=== PATIENT | female | born 1960 | race Two or more races ===

== ENCOUNTER 2025-01-06 07:38 | Inpatient (IN) | payer OTHER ==
[~2025-01-06] VITALS: Ht 149.9 cm; Wt 74.3 kg
--- NOTE | 2025-01-06 08:23 | ED.PDOC ---
GI ASSESSMENT HPI Comments This is a 64 year old female presenting to the ED with chief complaint of abdominal pain. Patient reports that she has been experience suprapubic abdominal pain with associated nausea for the past 3 days. Patient relays that she has a previously diagnosed hernia that she believes is causing her pain. Patient denies any vomiting, diarrhea, fever, chills, dysuria, flank pain, or melena. Chief Complaint: Abdominal Pain Time Seen by MD: 08:18 Reviewed Notes: Nurses Notes, Medications, Allergies Allergies: Coded Allergies: NO KNOWN ALLERGIES (Unverified , 01/06/25) Information Source: Patient Mode of Arrival: Ambulatory Timing: Days Duration: Since onset Prehospital treatment: None Quality: Aching Vomitus: None Stool: Normal Severity: Moderate Recent: None Recent Hx of: None Pain Location: Suprapubic Modifying Factors: Nothing Associated sign and symptoms: Nausea, Abdominal Pain Past Medical History PAST MEDICAL HISTORY: HTN Past Medical History (Other): Hernia Surgical History: Cholecystectomy, HOUSE VISITOR History: Denies all HOUSE VISITOR Hx Family History Family History: Reviewed,noncontributory to illness Social History Smoker: Non-Smoker Alcohol: Denies ETOH Use Drugs: Denies Drug Use Lives In: Home Constitutional: denies: chills, diaphoresis, fatigue, fever, malaise, sweats, weakness, others EENTM: denies: blurred vision, double vision, ear bleeding, ear discharge, ear drainage, ear pain, ear ringing, eye pain, eye redness, hearing loss, mouth pain, mouth swelling, nasal discharge, nose bleeding, nose congestion, nose pain, photophobia, tearing, throat pain, throat swelling, voice changes, others Respiratory: denies: cough, hemoptysis, orthopnea, SOB at rest, shortness of breath, SOB with excertion, stridor, wheezing, others Cardiovascular: denies: chest pain, dizzy spells, diaphoresis, Dyspnea on exertion, edema, irregular heart beat, left arm pain, lightheadedness, palpitations, PND, syncope, others Gastrointestinal: reports: abdominal pain, nausea; denies: abdomen distended, blood streaked bowels, constipated, diarrhea, dysphagia, difficulty swallowing, hematemesis, melena, poor appetite, poor fluid intake, rectal bleeding, rectal pain, vomiting, others Genitourinary: denies: abnormal vagina bleeding, burning, dyspareunia, dysuria, flank pain, frequency, hematuria, incontinence, pain, , vagina discharg e, urgency, others Neurological: denies: dizziness, fainting, headache, left sided numbness, left sided weakness, numbness, paresthesia, pre-existing deficit, right sided numbness, right sided weakness, seizure, speech problems, tingling, tremors, weakness, others Musculoskeletal: denies: back pain, gout, joint pain, joint swelling, muscle pain, muscle stiffness, neck pain, others Integumetry: denies: bruises, change in color, change in hair/nails, dryness, laceration, lesions, lumps, rash, wounds, others Allergic/Immunocompromised: denies: Difficulty Healing, Frequent Infections, Hives, Itching, others Hematologic/Lymphatic: denies: anemia, blood clots, easy bleeding, easy bruising, swollen glands, others Endocrine: denies: excessive hunger, excessive sweating, excessive thirst, excessive urination, flushing, intolerance to cold, intolerance to heat, unexplained weight gain, unexplained weight loss, others Psychiatric: denies: anxiety, bipolar disorder, depression, hopeless, panic d isorder, schizophrenia, sleepless, suicidal, others All Other Systems: Reviewed and Negative Physical Exam General Appearance: Moderate Distress HEENT: Normal ENT Inspection, Pharynx Normal, TMs Normal Neck: Full Range of Motion, Non-Tender, Normal, Normal Inspection Respiratory: Chest Non-Tender, Lungs Clear, No Accessory Muscle Use, No Respiratory Distress, Normal Breath Sounds Cardiovascular: No Edema, No JVD, No Murmur, No Gallop, Normal Peripheral Pulses, Regular Rate/Rhythm Breast Exam: Deferred Gastrointestinal: No Organomegaly, No Pulsatile Mass, Normal Bowel Sounds, Soft, Tenderness Genitalia: Deferred Pelvic: Deferred Rectal: Deferred Extremities: No calf tenderness, Normal capillary refill, Normal inspection, Normal range of motion, Non-tender, No pedal edema Musculoskeletal : Apperance: Normal Neurologic: Alert, nuclear medicine supervisor II-XII nml as Tested, Motor Weakness, Normal Affect, Normal Mood, No Sensory Deficits Cerebellar Function: Normal Reflexes: Normal Skin: Dry, Normal Color, Warm Lymphatic: No Adenopathy Was a procedure done? Was a procedure done?: No GI differential Dx Differential Diagnosis: Appendicitis, Bowel Obstruction, Gastritis/PUD, Gastroenteritis, Electrolyte Imbalance, Food Poisoning, Other (Incarcerated hernia) X-Ray, Labs, Meds, VS Vital Signs Date Time Temp Pulse Resp B/P (MAP) Pulse Ox O2 Delivery O2 Flow Rate FiO2 01/06/25 07:40 98.2 100 18 178/87 98 98.2 Lab Test 01/06/25 08:28 Range/Units White Blood Count 9.9 4.4-10.8 10^3/uL Red Blood Count 5.55 H 4.0-5.20 10^6/uL Hemoglobin 16.0 12.2-16.2 g/dL Hematocrit 46.2 H 36.0-46.0 % Mean Corpuscular Volume 83.4 80.0-100.0 fL Mean Corpuscular Hemoglobin 28.8 28.0-32.0 pg Mean Corpuscular Hemoglobin Concent 34.5 32.0-36.0 g/dL Red Cell Distribution Width 13.7 11.8-14.3 % Platelet Count 298 140-450 10^3/uL Mean Platelet Volume 8.0 6.9-10.8 fL Neutrophils (%) (Auto) 78.0 37.0-80.0 % Lymphocytes (%) (Auto) 14.2 10.0-50.0 % Monocytes (%) (Auto) 6.3 0.0-12.0 % Eosinophils (%) (Auto) 1.3 0.0-7.0 % Basophils (%) (Auto) 0.2 0.0-2.0 % Neutrophils # (Auto) 7.7 1.6-8.6 10 ^3/uL Lymphocytes # (Auto) 1.4 0.4-5.4 10 ^3/uL Monocytes # (Auto) 0.6 0-1.3 10 ^3/uL Eosinophils # (Auto) 0.1 0-0.8 10 ^3/uL Basophils # (Auto) 0 0-0.2 10 ^3/uL Nucleated Red Blood Cells 0.0 % Sodium Level Pending Potassium Level Pending Chloride Level Pending Carbon Dioxide Level Pending Anion Gap Pending Blood Urea Nitrogen Pending Creatinine Pending Glomerular Filtration Rate Calc Pending BUN/Creatinine Ratio Pending Serum Glucose Pending Calcium Level Pending CT Abd/Pel indicates: 1. Incarcerated sigmoid colon secondary to an umbilical hernia. 2. Cholecystectomy. 3. Hepatic steatosis. IV Hep-Lock was established The patient is given morphine 4 mg IV push The patient is given Zofran 4 mg IV push for the nausea The patient's CBC is within normal limits. An NG-tube is being placed at this time. The chemistry panel will be followed by the hospitalist We have discussed the findings with the patient through an manager ed during the patient is being admitted at this time The surgical consult is being obtained Images Reviewed?: Images reviewed and evaluated by me Time of 1ST Reevaluation: 09:08 Reevaluation 1ST: Unchanged Patient Education/Counseling: Diagnosis, Treatment, Prognosis Family Education/Counseling: No Family Present SEPSIS Sepsis Screen Date sepsis recognized/suspect: Jan 06, 2025 Time Sepsis recognized/suspect: 739 Recent Procedure: No On Antibiotic Therapy: No Respiratory Rate >20: No Heart Rate >90: Yes Temp<36 C (96.8 F) or >38.3 C: No SBP <90 or MAP <65 mmHG: No New Acute Mental Status Change: No Is the patient on CPAP, BIPAP,: No Physician Orders Urinalysis (01/06/25 08:03) Ct Ab Pel Wo Con-No Oral Or Iv (01/06/25 08:03) Heplock Iv (01/06/25 08:03) Basic Metabolic Panel (01/06/25 08:03) Ngt/Ogt (01/06/25 ) Vital Signs Date Time Temp Pulse Resp B/P (MAP) Pulse Ox O2 Delivery O2 Flow Rate FiO2 01/06/25 07:40 98.2 100 18 178/87 98 98.2 Laboratory Tests Test 01/06/25 08:28 White Blood Count 9.9 10^3/uL (4.4-10.8) Departure 1 Departure Time of Disposition: 09:08 Impression: Primary Impression: Intractable abdominal pain Additional Impression: Incarcerated hernia Disposition: ADMITTED INPATIENT Admit to: Med Surg Condition: Fair Critical Care Note Critical Care Time?: No Stability Stability form required: Yes Unstable for transfer: ED Physician Assesment (Clinical assesment) Heart Score Heart Score: Heart Score Response (Comments) Value History N/A 0 EKG N/A 0 Age N/A 0 Risk Factors N/A 0 Troponin N/A 0 Total 0 I personally scribed for GERALD SMITH MD ([email or web address]) on 01/06/25 at 08:23. Electronically submitted by Clay Liriano ([email or web address]). I personally scribed for GERALD SMITH MD ([email or web address]) on 01/06/25 at 09:03. Electronically submitted by Clay Liriano ([email or web address]). GERALD SMITH MD Jan 06, 2025 08:23
[2025-01-06 08:56] LABS: Hematocrit 46.2 % (36.0-46.0); Hemoglobin 16.0 g/dL (12.2-16.2); Mean Corpuscular Hemoglobin 28.8 pg (28.0-32.0); Mean Corpuscular Volume 83.4 fL (80.0-100.0); Nucleated Red Blood Cells % 0.0 %
--- NOTE | 2025-01-06 08:56 | DVH ---
Exam: CT CT AB PEL WO CON-NO ORAL OR IV History: llq pain Comparison Study: None Technique: Multidetector spiral CT of the abdomen and pelvis was performed from lung bases to pubic s ymphysis. Imaging was performed without intravenous contrast. Coronal and sagittal multiplanar reform ats were obtained from the axial data set by the technologist. Radiation Dose : 1. Abdomen/Pelvis: CTDIvol 17.97 mGy, DLP 896.3 mGy*cm. Findings: Evaluation of vasculature and solid organs is limited due to lack of intravenous contrast use. Lung Bases: Lung bases are clear. Visualized portions of the heart and pericardium are unremarkable. Liver: The liver is normal in size. No focal lesions. Diffusely hypoattenuating liver parenchyma con sistent with hepatic steatosis. Gallbladder and Biliary Tree: The gallbladder is surgically absent. No intrahepatic or extrahepatic b iliary ductal dilatation. Spleen: Unremarkable Pancreas: The pancreas is grossly unremarkable. Adrenal Glands: Unremarkable Kidneys: Kidneys are unremarkable without calculi or hydronephrosis. GI tract: The stomach is grossly normal in appearance. No evidence of small bowel wall thickening or abnormal dilatation to suggest bowel obstruction. A portion of the sigmoid colon is located in an umb ilical hernia. There is luminal narrowing of the sigmoid colon at the site of the fascial defect of t he hernia. There is no upstream dilatation of the colon. The appendix is visualized, without finding s to suggest acute appendicitis. Peritoneum/mesentery/retroperitoneum. No evidence of free intraperitoneal air. No ascites. No evidenc e of suspicious lymphadenopathy. Abdominal Wall: There is an umbilical hernia containing fat with fat stranding, and a portion of the sigmoid colon. Vasculature: The visualized abdominal aorta is normal in size and caliber. Evaluation of abdominal a nd pelvic vessels is limited due to lack of intravenous contrast. Urinary Bladder: Grossly unremarkable for degree of distention. Pelvic Organs: Unremarkable Musculoskeletal: No aggressive focal bony lesions, acute fractures or dislocation. IMPRESSION: 1. Incarcerated sigmoid colon secondary to an umbilical hernia. 2. Cholecystectomy. 3. Hepatic steatosis.
[2025-01-06 09:07] LABS: Chloride 104 mmol/L (98-107); Potassium 3.6 mmol/L (3.5-5.1); Sodium 141 mmol/L (136-145)
[2025-01-06 09:08] LABS: Anion Gap 11 (5-15); Calcium 9.2 mg/dL (8.7-10.4); Carbon Dioxide 26 mmol/L (20-31)
[2025-01-06 09:13] LABS: BUN/Creatinine Ratio 15.9 (10.0-20.0); Blood Urea Nitrogen 11 mg/dL (9-23); Glucose 134 mg/dL (74-106)
[2025-01-06] MEDS: MORPHINE SULFATE 4 MG/ML SYR/VIAL IV ONE (09:39)
[2025-01-06] MEDS: ONDANSETRON HCL 4 MG/2 ML VIAL IV ONE (09:39)
[2025-01-06 12:32] LABS: Urine Protein, UAD TRACE (Negative)
[2025-01-06] MEDS ORDERED: MORPHINE SULFATE INJ 2 MG/ml SYRG IV PRN (15:45)
[2025-01-06] MEDS: SODIUM CHLORIDE 0.9% 1,000 ML IV SCH (15:45)
[2025-01-06] MEDS ORDERED: NITROGLYCERIN 0.4 MG SL TAB SL PRN (15:45)
[2025-01-06] MEDS: MORPHINE SULFATE INJ 2 MG/ml SYRG IV PRN (23:49)
[2025-01-06] MEDS: ONDANSETRON HCL 4 MG/2 ML VIAL IV PRN (23:52)
[2025-01-07] VITALS (8 sets, daily range): BP systolic 145–187; BP diastolic 71–91; PULSE 81–110; RESP 16–20; TEMP 97.5–98.2; O2SAT 94–97
[2025-01-07 07:02] LABS: Hematocrit 43.0 % (36.0-46.0); Hemoglobin 14.5 g/dL (12.2-16.2); Mean Corpuscular Hemoglobin 28.4 pg (28.0-32.0); Mean Corpuscular Volume 84.4 fL (80.0-100.0); Nucleated Red Blood Cells % 0.0 %
[2025-01-07 07:05] LABS: Alanine Aminotransferase 28 U/L (7-40); Alkaline Phosphatase 101 U/L (46-116); Anion Gap 11 (5-15); Carbon Dioxide 25 mmol/L (20-31); Chloride 104 mmol/L (98-107); Potassium 3.7 mmol/L (3.5-5.1); Sodium 140 mmol/L (136-145); Total Protein 7.0 g/dL (5.7-8.2)
[2025-01-07 07:06] LABS: Albumin 4.1 g/dL (3.2-4.8); Bilirubin, Total 1.2 mg/dL (0.2-1.0)
[2025-01-07 07:26] LABS: Calcium 8.6 mg/dL (8.7-10.4); Glucose 111 mg/dL (74-106)
[2025-01-07 08:26] LABS: BUN/Creatinine Ratio 20.6 (10.0-20.0); Blood Urea Nitrogen 13 mg/dL (9-23)
[2025-01-07] MEDS: PANTOPRAZOLE 40 MG/10 ML VIAL INJ IV SCH (10:00)
[2025-01-07] MEDS: ENOXAPARIN SOD 40 MG/0.4 ML SYRINGE SC SCH (10:00)
--- NOTE | 2025-01-07 11:55 | DVHHP2 ---
Admitting Diagnosis: Abdominal pain History of Present Illness 64 yo female patient with hx of hernia c/o suprapubic abdominal pain with associated nausea x 3 days. While in the emergency department the patient was evaluated by the provider, As per provider: Labs, vital signs, and imagining monitored. Patient will be admitted for further evaluation and treatment. I discussed admission with the patient/family and is in agreement to treatment plan. Allergies: Coded Allergies: NO KNOWN ALLERGIES (Unverified , 01/06/25) Home Meds No Active Prescriptions or Reported Meds Current Medications Current Medications Medications (Trade) Dose Ordered Sig/Maria G Route PRN Reason Start Time Stop Time Status Last Admin Enoxaparin Sodium (Lovenox) 40 mg DAILY SC 01/07/25 10:00 Pantoprazole Sodium (Protonix) 40 mg DAILY IV 01/07/25 10:00 Hydralazine HCl (Apresoline Injection) 10 mg Q6HP PRN IV SBP>150 01/07/25 12:00 01/07/25 17:57 Potassium Chloride/Dextrose/ Sod Cl 1,000 ml @ 100 mls/hr Q10H IV 01/07/25 16:04 01/07/25 17:56 Review of Systems Constitutional: denies chills, denies fever, denies malaise Eyes: denies eye pain, denies vision change ENT: denies ear pain, denies headache, denies nasal congestion, denies painful swallowing, denies voice change Cardiovascular: denies chest pain, denies edema, denies orthopnea, denies palpitations, denies paroxysmal nocturnal dyspnea Respiratory: denies cough, denies shortness of breath Gastrointestinal: denies constipation, denies diarrhea, denies nausea, denies vomiting Genitourinary: denies dysuria, denies frequent urination, denies urethral discharge Musculoskeletal: denies back pain, denies joint pain, denies muscle pain Skin: denies bruising, denies itching, denies rash Neurological: denies focal weakness, denies headache, denies sensory changes Psychiatric: denies anxiety, denies depression Endocrine: denies polydipsia, denies polyuria Hematologic/Lymphatic: denies easy bleeding, denies easy bruising, denies enlarged lymph nodes Allergic/Immunologic: denies allergy, denies hives Vital Signs Vital Signs Date Time Temp Pulse Resp B/P (MAP) Pulse Ox O2 Delivery O2 Flow Rate FiO2 01/07/25 17:57 187/91 01/07/25 17:20 97.9 101 19 97 97.9 01/07/25 00:55 Room Air* 0 21 Physical Exam General Appearance: alert, no distress HEENT: EOMI, PERRLA, normal external inspect of ears, no icterus, no nasal drainage Neck: no carotid bruit, no jugular venous distention (JVD), no lymphadenopathy Chest: normal thorax Respiratory: clear to auscultation, normal air movement Cardiovascular: regular rate and rhythm, no diastolic murmur, no jugular venous distention (JVD), no rub, no systolic murmur Abdominal: soft, no hepatomegaly, no mass, no splenomegaly, no tenderness Genitourinary: grossly normal external Musculoskeletal: no joint tenderness, no swelling Extremities: normal pulses, no calf tenderness, no clubbing, no cyanosis, no edema Skin: no bruising, no jaundice, no rash Neurological: alert, No focal deficit SEPSIS Sepsis Screen Date sepsis recognized/suspect: Jan 06, 2025 Time Sepsis recognized/suspect: 739 Recent Procedure: No On Antibiotic Therapy: No Respiratory Rate >20: No Heart Rate >90: Yes Temp<36 C (96.8 F) or >38.3 C: No SBP <90 or MAP <65 mmHG: No New Acute Mental Status Change: No Is the patient on CPAP, BIPAP,: No Physician Orders Ct Ab Pel Wo Con-No Oral Or Iv (01/06/25 08:03) Heplock Iv (01/06/25 08:03) Ngt/Ogt (01/06/25 ) * Surgical Consult (01/06/25 09:09) Admit (01/06/25 15:31) Code Status (01/06/25 15:31) Hydrocodone-Acet 5/325mg Tab ([place] 5/32 (01/06/25 15:45) Ondansetron Hcl (Zofran) (01/06/25 15:45) Enoxaparin Sodium (Lovenox) (01/07/25 10:00) Condition: Fair (01/06/25 15:31) Acetaminophen Tablet (Tylenol Tablet) (01/06/25 15:45) Morphine Sulfate Injection (01/06/25 15:45) Sequential Compression Device (01/06/25 ) Nitroglycerin Sublingual (Ntrostat Subli (01/06/25 15:45) Stat Ekg For Chest Pain (01/06/25 15:31) Notify Of Changes From Base (01/06/25 15:31) Oil Transport Driver For 24 Hours (01/06/25 15:31) Emergency Dysrhythmia Protocol (01/06/25 15:31) Rhythm Strips Once Every Shift (01/06/25 15:31) Oxygen By Nasal Cannula (01/06/25 15:31) Pantoprazole (Protonix) (01/07/25 10:00) Morphine Sulfate Injection (01/06/25 15:45) Npo Except Ice Chips (01/07/25 11:53) Npo (Nothing By Mouth) Diet (01/07/25 Lunch) Hydralazine Injection (Apresoline Inject (01/07/25 12:00) Obtain Consent For: (01/07/25 12:22) Electrocardigram (01/07/25 12:44) Chest Portable (01/07/25 12:44) D5w/Sod Chl 0.45%/Kcl 20meq (01/07/25 16:04) Vital Signs Date Time Temp Pulse Resp B/P (MAP) Pulse Ox O2 Delivery O2 Flow Rate FiO2 01/07/25 17:57 187/91 01/07/25 17:20 97.9 101 19 187/91 (123) 97 97.9 01/07/25 09:00 98.1 83 20 160/71 (100) 95 98.1 01/07/25 08:59 93 19 156/73 01/07/25 08:29 81 18 145/75 01/07/25 05:00 97.7 81 18 145/75 (98) 94 97.7 01/07/25 01:00 97.5 90 20 154/74 (100) 94 97.5 01/07/25 00:55 90 16 94 Room Air* 0 21 01/07/25 00:19 90 16 154/74 01/07/25 00:01 97.5 110 20 164/78 (106) 94 97.5 01/06/25 23:49 110 16 164/78 01/06/25 23:37 Room Air* 0 21 01/06/25 09:39 93 18 152/95 01/06/25 09:27 97.7 93 18 152/95 (114) 95 97.7 01/06/25 07:40 98.2 100 18 178/87 98 98.2 Laboratory Tests Test 01/06/25 08:28 01/07/25 05:55 White Blood Count 9.9 10^3/uL (4.4-10.8) 11.0 10^3/uL (4.4-10.8) H Medications Medications Dose Ordered Sig/Maria G Route Start Time Stop Time Status Last Admin Dose Admin Hydralazine HCl 10 mg Q6HP PRN IV 01/07/25 12:00 01/07/25 17:57 Potassium Chloride/Dextrose/ Sod Cl 1,000 ml @ 100 mls/hr Q10H IV 01/07/25 16:04 01/07/25 17:56 Results Labs Test 01/07/25 12:31 01/07/25 05:55 01/06/25 12:03 Range/Units Prothrombin Time 11.2 9.3-11.8 sec Prothrombin Time INR 1.06 0.9-1.15 Activated Partial Thromboplast Time 28.3 24.5-34.5 SEC White Blood Count 11.0 H 4.4-10.8 10^3/uL Red Blood Count 5.10 4.0-5.20 10^6/uL Hemoglobin 14.5 12.2-16.2 g/dL Hematocrit 43.0 36.0-46.0 % Mean Corpuscular Volume 84.4 80.0-100.0 fL Mean Corpuscular Hemoglobin 28.4 28.0-32.0 pg Mean Corpuscular Hemoglobin Concent 33.7 32.0-36.0 g/dL Red Cell Distribution Width 13.8 11.8-14.3 % Platelet Count 260 140-450 10^3/uL Mean Platelet Volume 8.2 6.9-10.8 fL Neutrophils (%) (Auto) 78.5 37.0-80.0 % Lymphocytes (%) (Auto) 12.2 10.0-50.0 % Monocytes (%) (Auto) 7.6 0.0-12.0 % Eosinophils (%) (Auto) 1.5 0.0-7.0 % Basophils (%) (Auto) 0.2 0.0-2.0 % Neutrophils # (Auto) 8.7 H 1.6-8.6 10 ^3/uL Lymphocytes # (Auto) 1.3 0.4-5.4 10 ^3/uL Monocytes # (Auto) 0.8 0-1.3 10 ^3/uL Eosinophils # (Auto) 0.2 0-0.8 10 ^3/uL Basophils # (Auto) 0 0-0.2 10 ^3/uL Nucleated Red Blood Cells 0.0 % Sodium Level 140 136-145 mmol/L Potassium Level 3.7 3.5-5.1 mmol/L Chloride Level 104 98-107 mmol/L Carbon Dioxide Level 25 20-31 mmol/L Anion Gap 11 5-15 Blood Urea Nitrogen 13 9-23 mg/dL Creatinine 0.63 0.550-1.02 mg/dL Glomerular Filtration Rate Calc 99 >90 mL/min BUN/Creatinine Ratio 20.6 H 10.0-20.0 Serum Glucose 111 H 74-106 mg/dL Hemoglobin A1c 5.5 <5.7 % A1C Calcium Level 8.6 L 8.7-10.4 mg/dL Total Bilirubin 1.2 H 0.2-1.0 mg/dL Aspartate Amino Transferase (AST) 24 13-40 U/L Alanine Aminotransferase (ALT) 28 7-40 U/L Alkaline Phosphatase 101 46-116 U/L Total Protein 7.0 5.7-8.2 g/dL Albumin 4.1 3.2-4.8 g/dL Triglycerides Level 104 < 150 mg/dL Cholesterol Level 159 < 200 mg/dL LDL Cholesterol 117 H < 100 mg/dL HDL Cholesterol 38 L 40-59 mg/dL Urine Color Yellow Yellow Urine Clarity Turbid H Clear Urine pH 6.0 5.0-9.0 Urine Specific [place] 1.026 1.001-1.035 Urine Protein Trace H Negative Urine Ketones Negative Negative Urine Blood Negative Negative /uL Urine Nitrite Negative Negative Urine Bilirubin Negative Negative Urine Urobilinogen Normal Negative mg/dL Urine Leukocyte Esterase 3+ Negative /uL Urine RBC 7 0 - 4 /hpf Urine Microscopic WBC 138 H 0-5 /HPF Urine Squamous Epithelial Cells Many <5 /hpf Urine Bacteria Few H None Seen /hpf Urine Hyaline Casts Few 0 - 2 /lpf Urine Mucus Few None Seen Urine Glucose Normal Normal mg/dL Plan 1. Incarcerated umbilical hernia Monitor, IV fluids, surgical consult, prn pain meds 2. Benign essential HTN Monitor, DVT prophylaxis 3. Morbid obesity Monitor, PPI, lipid panel, obtain Hgb A1c Plan discussed with: Patient, Other JORDYN MACIAS CONVENTION WORKER Jan 07, 2025 11:55
--- NOTE | 2025-01-07 11:55 | DVHPN2 ---
Progress Note - Dictate Date Seen: Jan 07, 2025 Medical Necessity Reason Pt with a Central, PICC or Fol: No vital signs Vital Sign Date Time Temp Pulse Resp B/P (MAP) Pulse Ox O2 Delivery O2 Flow Rate FiO2 01/07/25 08:29 81 18 145/75 01/07/25 05:00 97.7 94 97.7 01/07/25 00:55 Room Air* 0 21 Total Intake and Output 01/06/25 01/06/25 01/07/25 15:00 23:00 07:00 Intake Total 0 ml Balance 0 ml medications Current Medications Medications Dose Ordered Sig/Maria G Route Start Time Stop Time Status Last Admin Dose Admin Sodium Chloride 1,000 ml @ 120 mls/hr Q8H20M IV 01/06/25 15:45 01/07/25 08:26 Acetaminophen/ Hydrocodone Bitart 1 tab Q4HP PRN PO 01/06/25 15:45 Ondansetron HCl 4 mg Q4HP PRN IV 01/06/25 15:45 01/07/25 08:27 Enoxaparin Sodium 40 mg DAILY SC 01/07/25 10:00 Acetaminophen 650 mg Q6HP PRN PO 01/06/25 15:45 Morphine Sulfate 2 mg Q4HPRN PRN IV 01/06/25 15:45 01/07/25 08:29 Nitroglycerin 0.4 mg Q5MINP PRN SL 01/06/25 15:45 Morphine Sulfate 2 mg Q30M PRN IV 01/06/25 15:45 Pantoprazole Sodium 40 mg DAILY IV 01/07/25 10:00 objective General Appearance: alert, no distress HEENT: EOMI, PERRLA, normal external inspect of ears, no icterus, no nasal drainage Neck: no carotid bruit, no jugular venous distention (JVD), no lymphadenopathy Chest: normal thorax Respiratory: clear to auscultation, normal air movement Cardiovascular: regular rate and rhythm, no diastolic murmur, no jugular venous distention (JVD), no rub, no systolic murmur Abdominal: soft, no hepatomegaly, no mass, no splenomegaly, no tenderness Genitourinary: grossly normal external Musculoskeletal: no joint tenderness, no swelling Extremities: normal pulses, no calf tenderness, no clubbing, no cyanosis, no edema Skin: no bruising, no jaundice, no rash Neurological: alert, No focal deficit laboratory and microbiology Laboratory Tests 01/07/25 05:55 Test 01/07/25 05:55 Range/Units Serum Glucose 111 H 74-106 mg/dL Problem List 1. Incarcerated umbilical hernia Monitor, IV fluids, surgical consult, prn pain meds 2. Benign essential HTN Monitor, DVT prophylaxis 3. Morbid obesity Monitor, PPI, lipid panel, obtain Hgb A1c Assessment/Plan Subjective: Patient is awake and alert. Objective: CT imaging showed an incarcerated umbilical hernia. I contacted the surgical department, and the patient was promptly brought to the OR for repair and/or resection of the incarcerated hernia. Plan: Continue with current plan. Continue PPI and DVT prophylaxis. Repeat labs ordered for the a.m. Continue IV hydration. Plan discussed with: Patient, Other JORDYN MACIAS NP Jan 07, 2025 11:55
[2025-01-07 12:15] LABS: Triglycerides 104 mg/dL (< 150)
[2025-01-07 12:17] LABS: Cholesterol 159 mg/dL (< 200)
[2025-01-07 12:20] LABS: HDL Cholesterol 38 mg/dL (40-59)
[2025-01-07 13:33] LABS: INR 1.06 (0.9-1.15); Partial Thromboplastin Time 28.3 SEC (24.5-34.5); Prothrombin Time 11.2 sec (9.3-11.8)
--- NOTE | 2025-01-07 13:34 | DVH ---
EXAM: XY CHEST PORTABLE Indication: Pain Technique: Single frontal view of the chest was obtained Comparison: None FINDINGS: Lines and Tubes: None Lungs: No focal consolidation. Pleura: No effusion. No pneumothorax. Cardiomediastinal contours: Unremarkable. Atherosclerotic vascular calcifications of the thoracic ao rta are noted. Bones: No acute osseous abnormality. IMPRESSION: No acute cardiopulmonary disease.
--- NOTE | 2025-01-07 13:52 | DVHINCON2 ---
Date of service: Jan 07, 2025 Reason for Consultation incarcerated umbilical hernia History of Present Illness HPI 64 year old female presenting to the with complaint of abdominal pain and erythema on lower abdomen. Patient states the pain became progressively worse over the past few days associated with nausea. She reports the pain sharp 10/10. Home Meds No Active Prescriptions or Reported Meds Past Medical History Cardiac: HTN Pulmonary: No pertinent Hx Central Nervous System: No pertinent Hx GI: No pertinent Hx Hemotology/Oncology: No pertinent Hx Hepatobiliary: No pertinent Hx Psychiatric: No pertinent Hx Musculoskeletal: No pertinent Hx Rheumotologic: No pertinent Hx Infectious Disease: No peritnent Hx ENT: No pertinent Hx Renal/: No pertinent Hx Endocrine: No pertinent Hx Dermatology: No pertinent Hx Past Surgical History: Cholecystectomy, Smoker: No Hx (Negative) Alocohol: None Drugs: None Lives with: With family Review of Systems Constitutional: No symptom reported Ears, Nose, & Throat: No symptom reported Eyes: No symptom reported Pulmonary/Respiratory: No symptom reported Cardiovascular: No symptom reported Gastrointestinal: Nausea, Abdominal Pain Genitourinary: No symptom reported Musculoskeletal: No symptom reported Skin: No symptom reported Psychiatric: No symptom reported Endocrine: No symptom reported Hemotologic/Lymphatic: No symptom reported H&P Exam Vital Signs Vital Signs Date Time Temp Pulse Resp B/P (MAP) Pulse Ox O2 Delivery O2 Flow Rate FiO2 01/07/25 08:59 93 19 156/73 01/07/25 05:00 97.7 94 97.7 01/07/25 00:55 Room Air* 0 21 General Appeara: Well developed, Well nourished, Obese Head Exam: Normal inspection Neck Exam: Normal inspection Eye Exam: bilateral eye Normal inspection Pulmonary/Respiratory: Normal inspection, Normal breath sounds Cardiovascular/Chest: Normal inspection Abdominal Exam: Normal bowel sounds Abdominal Pain Onset Location: Generalized abdomen [employer]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: Normal hearing, Normal speech Neuro/Mental St: Alert, Oriented Appearance: Appropriate appearance Eye contact/ Speech: Cooperative, Good eye contact, Normal speech Labs/Xrays Labs Test 01/07/25 12:31 01/07/25 05:55 01/06/25 12:03 Range/Units Prothrombin Time 11.2 9.3-11.8 sec Prothrombin Time INR 1.06 0.9-1.15 Activated Partial Thromboplast Time 28.3 24.5-34.5 SEC White Blood Count 11.0 H 4.4-10.8 10^3/uL Red Blood Count 5.10 4.0-5.20 10^6/uL Hemoglobin 14.5 12.2-16.2 g/dL Hematocrit 43.0 36.0-46.0 % Mean Corpuscular Volume 84.4 80.0-100.0 fL Mean Corpuscular Hemoglobin 28.4 28.0-32.0 pg Mean Corpuscular Hemoglobin Concent 33.7 32.0-36.0 g/dL Red Cell Distribution Width 13.8 11.8-14.3 % Platelet Count 260 140-450 10^3/uL Mean Platelet Volume 8.2 6.9-10.8 fL Neutrophils (%) (Auto) 78.5 37.0-80.0 % Lymphocytes (%) (Auto) 12.2 10.0-50.0 % Monocytes (%) (Auto) 7.6 0.0-12.0 % Eosinophils (%) (Auto) 1.5 0.0-7.0 % Basophils (%) (Auto) 0.2 0.0-2.0 % Neutrophils # (Auto) 8.7 H 1.6-8.6 10 ^3/uL Lymphocytes # (Auto) 1.3 0.4-5.4 10 ^3/uL Monocytes # (Auto) 0.8 0-1.3 10 ^3/uL Eosinophils # (Auto) 0.2 0-0.8 10 ^3/uL Basophils # (Auto) 0 0-0.2 10 ^3/uL Nucleated Red Blood Cells 0.0 % Sodium Level 140 136-145 mmol/L Potassium Level 3.7 3.5-5.1 mmol/L Chloride Level 104 98-107 mmol/L Carbon Dioxide Level 25 20-31 mmol/L Anion Gap 11 5-15 Blood Urea Nitrogen 13 9-23 mg/dL Creatinine 0.63 0.550-1.02 mg/dL Glomerular Filtration Rate Calc 99 >90 mL/min BUN/Creatinine Ratio 20.6 H 10.0-20.0 Serum Glucose 111 H 74-106 mg/dL Hemoglobin A1c 5.5 <5.7 % A1C Calcium Level 8.6 L 8.7-10.4 mg/dL Total Bilirubin 1.2 H 0.2-1.0 mg/dL Aspartate Amino Transferase (AST) 24 13-40 U/L Alanine Aminotransferase (ALT) 28 7-40 U/L Alkaline Phosphatase 101 46-116 U/L Total Protein 7.0 5.7-8.2 g/dL Albumin 4.1 3.2-4.8 g/dL Triglycerides Level 104 < 150 mg/dL Cholesterol Level 159 < 200 mg/dL LDL Cholesterol 117 H < 100 mg/dL HDL Cholesterol 38 L 40-59 mg/dL Urine Color Yellow Yellow Urine Clarity Turbid H Clear Urine pH 6.0 5.0-9.0 Urine Specific Gates 1.026 1.001-1.035 Urine Protein Trace H Negative Urine Ketones Negative Negative Urine Blood Negative Negative /uL Urine Nitrite Negative Negative Urine Bilirubin Negative Negative Urine Urobilinogen Normal Negative mg/dL Urine Leukocyte Esterase 3+ Negative /uL Urine RBC 7 0 - 4 /hpf Urine Microscopic WBC 138 H 0-5 /HPF Urine Squamous Epithelial Cells Many <5 /hpf Urine Bacteria Few H None Seen /hpf Urine Hyaline Casts Few 0 - 2 /lpf Urine Mucus Few None Seen Urine Glucose Normal Normal mg/dL Assessment/Plan Problem List: (1) Incarcerated hernia (2) Intractable abdominal pain Plan patient complaint of abdominal pain, abdomen minimally tender, passing gas and had BM complaint of nausea , denies vomiting review of CT patient had breakfast this morning and water at lunch time will schedule repair of incarcerated hernia in the am plan: repair of incarcerated umbilical hernia possibly with mesh Plan discussed with: Patient Visit Coding Surgery Date of Service if different f: Jan 07, 2025 Billing Provider: BENITO HAGAN MD Surgery Visit Codes: [id number] - INP CONSULT <80 MIN MARY CHENG NP Jan 07, 2025 13:52
[2025-01-07] MEDS: D5W/SOD CHL 0.45%/KCL 20MEQ 1,000 ML IV SCH (17:56)
[2025-01-07] MEDS: hydrALAZINE HCL 20 MG/ML VL IV PRN (17:57)
[2025-01-08] VITALS (10 sets, daily range): BP systolic 122–183; BP diastolic 62–77; PULSE 65–99; RESP 14–20; TEMP 97.9–99.8; O2SAT 93–99
[2025-01-08] MEDS ORDERED: HYDROmorphone HCL 2 MG/ML VL/or syr IV PRN ×3 (07:00→08:30)
[2025-01-08] MEDS: KETOROLAC TROMETH 30 MG/ML 1ML VIAL IV ONE (07:00)
[2025-01-08] MEDS ORDERED: METOCLOPRAMIDE HCL 5MG/ml INJ 2ml VIAL IV PRN (07:00)
[2025-01-08] MEDS ORDERED: MORPHINE SULFATE 4 MG/ML SYR/VIAL IV PRN (07:00)
[2025-01-08] MEDS ORDERED: fentaNYL CITRATE 100 MCG/2 ML VL ONE (07:27)
[2025-01-08] MEDS ORDERED: KETAMINE 50mg/ML 1ml syringe ONE (07:27)
[2025-01-08] MEDS ORDERED: HYDROmorphone HCL 2 MG/ML VL/or syr ONE (07:27)
[2025-01-08] MEDS ORDERED: MIDAZOLAM HCL 2MG/2ML 2ml VIAL (1mg/ml) ONE (07:28)
[2025-01-08] MEDS ORDERED: LIDOCAINE HCL 2% TOP JELLY 5ML TOP ONE (07:28)
[2025-01-08] MEDS ORDERED: SODIUM CHLORIDE LOCK 10 ML ONE (07:28)
[2025-01-08] MEDS ORDERED: PROPOFOL 10 MG/ML 20 ML IV ONE (07:28)
[2025-01-08] MEDS ORDERED: ONDANSETRON HCL 4 MG/2 ML VIAL ONE (07:28)
[2025-01-08] MEDS ORDERED: ROCURONIUM 10MG/ML 10ML VIAL IV ONE (07:28)
[2025-01-08] MEDS ORDERED: MORPHINE SULFATE INJ 2 MG/ml SYRG IV PRN (07:41)
[2025-01-08] MEDS ORDERED: GLYCOPYRROLATE 0.2 MG/ML 1ML VIAL ONE (07:59)
[2025-01-08] MEDS ORDERED: NEOSTIGMINE 1 MG/ML INJ (10mg/10ML VIAL) ONE (07:59)
--- NOTE | 2025-01-08 08:26 | DVHOP ---
DATE OF SURGERY: 01/08/2025 PREOPERATIVE DIAGNOSIS: Incarcerated infraumbilical incisional hernia. POSTOPERATIVE DIAGNOSIS: Incarcerated infraumbilical incisional hernia. SURGEON: Walter Salmon MD [employer] ATTENDANT: Chris Marcos NP ANESTHESIA: General endotracheal, Dr. Higgins. PROCEDURE: Repair of incarcerated incisional hernia. DESCRIPTION OF PROCEDURE: The patient had a prior section done in [place] and following this developed an incisional hernia which became incarcerated approximately 24 hours ago. The patient was taken to the operating room where under general endotracheal anesthesia with the skin prepped and draped, incision was made into the scar preexisting section done vertically. The patient's hernia consisted of an incarcerated sigmoid colon which was completely viable at the termination of the procedure. There was incarcerated omentum which was ischemic and this was excised in its entirety and submitted for histopathologic examination. Subsequently following a reduction of the bowel into the abdominal cavity, the midline fascia was approximated using #1 double-stranded PDS with interrupted interspersed Tevdek sutures. The subcutaneous tissues were then irrigated. Hemostasis was meticulously accomplished and the patient's subcutaneous tissues and skin were approximated using Monocryl sutures, Dermabond glue, and Steri-Strips. The patient remained stable throughout the procedure and left the operating room following an accurate needle and sponge count. MD ARSLAN Gonzalez/GODFREY TID: [id number] RECEIPT: [id number]
[2025-01-08] MEDS ORDERED: ONDANSETRON HCL 4 MG/2 ML VIAL IV PRN (08:30)
[2025-01-08] MEDS: SUCCINYLCHOLINE CHLORIDE 20 MG/ML 10ML VIAL IV ONE (09:07)
[2025-01-08] MEDS: ceFAZolin 2 GM/D5W50ml 50 ML IV ONE (09:07)
[2025-01-08] MEDS: ROCURONIUM 10MG/ML 10ML VIAL IV ONE (09:07)
[2025-01-08] MEDS: Lidocaine/Epinephrine 1%-1:100,000 30ML VL ONE (09:08)
[2025-01-08] MEDS: BUPIVACAINE 0.5% MPF INJ 30ML SDV IJ ONE (09:08)
[2025-01-08] MEDS: POVIDONE IODINE 10 % TOPICAL OINT 30GM TOP ONE (09:09)
[2025-01-08] MEDS: D5W/SOD CHL 0.45%/KCL 20MEQ 1,000 ML IV SCH (10:16)
--- NOTE | 2025-01-08 10:20 | DVHPN2 ---
Progress Note - Dictate Date Seen: Jan 08, 2025 Medical Necessity Reason Pt with a Central, PICC or Fol: No vital signs Vital Sign Date Time Temp Pulse Resp B/P (MAP) Pulse Ox O2 Delivery O2 Flow Rate FiO2 01/08/25 10:10 178/81 01/08/25 09:54 75 20 98 01/08/25 08:55 Nasal Cannula 2.0 99 01/08/25 08:29 97.2 97.2 Total Intake and Output 01/07/25 01/07/25 01/08/25 15:00 23:00 07:00 Intake Total 480 ml 0 ml 100 ml Balance 480 ml 0 ml 100 ml medications Current Medications Medications Dose Ordered Sig/Maria G Route Start Time Stop Time Status Last Admin Dose Admin Acetaminophen/ Hydrocodone Bitart 1 tab Q4HP PRN PO 01/06/25 15:45 Enoxaparin Sodium 40 mg DAILY SC 01/07/25 10:00 01/08/25 10:10 40 MG Acetaminophen 650 mg Q6HP PRN PO 01/06/25 15:45 Morphine Sulfate 2 mg Q4HPRN PRN IV 01/06/25 15:45 Hold 01/07/25 08:29 2 MG Nitroglycerin 0.4 mg Q5MINP PRN SL 01/06/25 15:45 Morphine Sulfate 2 mg Q30M PRN IV 01/06/25 15:45 Pantoprazole Sodium 40 mg DAILY IV 01/07/25 10:00 01/08/25 10:10 40 MG Hydralazine HCl 10 mg Q6HP PRN IV 01/07/25 12:00 01/08/25 10:10 10 MG Potassium Chloride/Dextrose/ Sod Cl 1,000 ml @ 100 mls/hr Q10H IV 01/07/25 16:04 Hold 01/08/25 03:17 100 MLS/HR Morphine Sulfate 2 mg Q4H PRN IV 01/08/25 07:00 01/08/25 11:01 Potassium Chloride/Dextrose/ Sod Cl 1,000 ml @ 120 mls/hr Q8H20M IV 01/08/25 08:30 01/08/25 10:16 120 MLS/HR Cefazolin Sodium/ Dextrose 50 ml @ 50 mls/hr Q8HR IV 01/08/25 14:00 Hydromorphone HCl 1 mg Q4HPRN PRN IV 01/08/25 08:30 Ondansetron HCl 4 mg Q4HPRN PRN IV 01/08/25 08:30 objective General Appearance: alert, no distress HEENT: EOMI, PERRLA, normal external inspect of ears, no icterus, no nasal drainage Neck: no carotid bruit, no jugular venous distention (JVD), no lymphadenopathy Chest: normal thorax Respiratory: clear to auscultation, normal air movement Cardiovascular: regular rate and rhythm, no diastolic murmur, no jugular venous distention (JVD), no rub, no systolic murmur Abdominal: soft, no hepatomegaly, no mass, no splenomegaly, no tenderness Genitourinary: grossly normal external Musculoskeletal: no joint tenderness, no swelling Extremities: normal pulses, no calf tenderness, no clubbing, no cyanosis, no edema Skin: no bruising, no jaundice, no rash Neurological: alert, No focal deficit laboratory and microbiology Laboratory Tests 01/07/25 05:55 Test 01/07/25 05:55 Range/Units Serum Glucose 111 H 74-106 mg/dL Problem List 1. Incarcerated umbilical hernia Monitor, IV fluids, surgical consult, prn pain meds 2. Benign essential HTN Monitor, DVT prophylaxis 3. Morbid obesity Monitor, PPI, lipid panel, obtain Hgb A1c Assessment/Plan Subjective: Patient is awake and alert. Objective: Patient is Citizen Of [place]-speaking. Patient was admitted for abdominal pain related to incarcerated umbilical hernia. Originally patient was scheduled for surgery yesterday however she ate breakfast. Surgery was rescheduled for this morning. Patient tolerated the procedure well. Patient was able to ambulate. She states she is passing some gas. Plan: Start clear liquids. Continue IV fluids. Patient to continue to ambulate. Continue antibiotics with Ancef. Plan discussed with: Patient, Other JORDYN MACIAS NP Jan 08, 2025 10:20
[2025-01-08] MEDS: LIDOCAINE 1% INJ PF 5ML AMP ONE (11:22)
[2025-01-08] MEDS: ceFAZolin 2 GM/D5W50ml 50 ML IV SCH (12:48)
[2025-01-08] MEDS: ACETAMINOPHEN 325 MG TAB PO PRN (16:35)
[2025-01-08] MEDS: HYDROcodone-ACET 5/325MG TAB PO PRN (22:52)
[2025-01-09] VITALS (8 sets, daily range): BP systolic 140–174; BP diastolic 71–84; PULSE 90–123; RESP 17–22; TEMP 97.8–99.8; O2SAT 92–96
--- NOTE | 2025-01-09 07:22 | DVHPN2 ---
Subjective Date Seen: Jan 09, 2025 Post op day Post op day: 1 Patient reports: No new complaints Nursing reports: No new complaints General: Normal HNT: Normal Cardiovascular: Normal Respiratory: Normal Gastrointestinal: Normal Genitourinary: Normal Musculoskeletal: Normal Neurological: Normal Objective Vitals Vital Sign Date Time Temp Pulse Resp B/P (MAP) Pulse Ox O2 Delivery O2 Flow Rate FiO2 01/09/25 05:00 98.5 90 18 148/76 (100) 92 98.5 01/08/25 20:00 Room Air* 0 21 Total Intake and Output 01/08/25 01/08/25 01/09/25 15:00 23:00 07:00 Intake Total 1470 ml 990 ml 850 ml Balance 1470 ml 990 ml 850 ml Medications Current Medications Medications Dose Ordered Sig/Maria G Route Start Time Stop Time Status Last Admin Dose Admin Acetaminophen/ Hydrocodone Bitart 1 tab Q4HP PRN PO 01/06/25 15:45 01/08/25 22:52 1 TAB Enoxaparin Sodium 40 mg DAILY SC 01/07/25 10:00 01/08/25 10:10 40 MG Acetaminophen 650 mg Q6HP PRN PO 01/06/25 15:45 01/08/25 16:35 650 MG Morphine Sulfate 2 mg Q4HPRN PRN IV 01/06/25 15:45 Hold 01/07/25 08:29 2 MG Nitroglycerin 0.4 mg Q5MINP PRN SL 01/06/25 15:45 Morphine Sulfate 2 mg Q30M PRN IV 01/06/25 15:45 Pantoprazole Sodium 40 mg DAILY IV 01/07/25 10:00 01/08/25 10:10 40 MG Hydralazine HCl 10 mg Q6HP PRN IV 01/07/25 12:00 01/08/25 10:10 10 MG Potassium Chloride/Dextrose/ Sod Cl 1,000 ml @ 100 mls/hr Q10H IV 01/07/25 16:04 Hold 01/08/25 03:17 100 MLS/HR Potassium Chloride/Dextrose/ Sod Cl 1,000 ml @ 120 mls/hr Q8H20M IV 01/08/25 08:30 01/08/25 16:36 120 MLS/HR Cefazolin Sodium/ Dextrose 50 ml @ 50 mls/hr Q8HR IV 01/08/25 14:00 01/09/25 05:38 50 MLS/HR Hydromorphone HCl 1 mg Q4HPRN PRN IV 01/08/25 08:30 Ondansetron HCl 4 mg Q4HPRN PRN IV 01/08/25 08:30 General: Normal Head/Eyes: Normal ENT: Normal Neck: Normal Lungs: Normal, Normal inspection Cardiovascular: Normal, Regular rate and rhythm Abdominal: Normal, Soft Musculoskeletal: Normal Labs and Microbiology Laboratory Tests 01/07/25 05:55 Test 01/07/25 05:55 Range/Units Serum Glucose 111 H 74-106 mg/dL Ass/Plan Problem List 1. Incarcerated umbilical hernia Monitor, IV fluids, surgical consult, prn pain meds 2. Benign essential HTN Monitor, DVT prophylaxis 3. Morbid obesity Monitor, PPI, lipid panel, obtain Hgb A1c Assessment/Plan no new complaints abdomen soft , non distended, appropriately tender tolerating diet patients states passed a little gas wounds clean dry and intact Plan: patient to ambulate if continues to pass gas ok to advance diet as tolerated continue IV antibiotics and hydration Prognosis: Good Plan discussed with patient, Dr. Salmon Visit Coding Surgery Date of Service if different f: Jan 09, 2025 Billing Provider: BENITO SALMON MD Surgery Visit Codes: [id number] INP/OBS CARE(HIGH) MARY CHENG NP Jan 09, 2025 07:22
[2025-01-09] MEDS ORDERED: AML5T PO (10:45)
[2025-01-09] MEDS ORDERED: ENAL1TAB48 PO (10:45)
--- NOTE | 2025-01-09 13:54 | DVHPN2 ---
Progress Note - Dictate Date Seen: Jan 09, 2025 Medical Necessity Reason Pt with a Central, PICC or Fol: No vital signs Vital Sign Date Time Temp Pulse Resp B/P (MAP) Pulse Ox O2 Delivery O2 Flow Rate FiO2 01/09/25 13:00 97.8 123 22 161/79 (106) 96 97.8 01/09/25 08:00 Room Air* 0 21 Total Intake and Output 01/08/25 01/08/25 01/09/25 15:00 23:00 07:00 Intake Total 1470 ml 990 ml 850 ml Balance 1470 ml 990 ml 850 ml medications Current Medications Medications Dose Ordered Sig/Maria G Route Start Time Stop Time Status Last Admin Dose Admin Acetaminophen/ Hydrocodone Bitart 1 tab Q4HP PRN PO 01/06/25 15:45 01/08/25 22:52 1 TAB Enoxaparin Sodium 40 mg DAILY SC 01/07/25 10:00 01/09/25 10:06 40 MG Acetaminophen 650 mg Q6HP PRN PO 01/06/25 15:45 01/08/25 16:35 650 MG Morphine Sulfate 2 mg Q4HPRN PRN IV 01/06/25 15:45 Hold 01/07/25 08:29 2 MG Nitroglycerin 0.4 mg Q5MINP PRN SL 01/06/25 15:45 Morphine Sulfate 2 mg Q30M PRN IV 01/06/25 15:45 Pantoprazole Sodium 40 mg DAILY IV 01/07/25 10:00 01/09/25 10:06 40 MG Hydralazine HCl 10 mg Q6HP PRN IV 01/07/25 12:00 01/09/25 09:12 10 MG Potassium Chloride/Dextrose/ Sod Cl 1,000 ml @ 100 mls/hr Q10H IV 01/07/25 16:04 Hold 01/08/25 03:17 100 MLS/HR Potassium Chloride/Dextrose/ Sod Cl 1,000 ml @ 120 mls/hr Q8H20M IV 01/08/25 08:30 01/09/25 10:12 120 MLS/HR Cefazolin Sodium/ Dextrose 50 ml @ 50 mls/hr Q8HR IV 01/08/25 14:00 01/09/25 05:38 50 MLS/HR Hydromorphone HCl 1 mg Q4HPRN PRN IV 01/08/25 08:30 Ondansetron HCl 4 mg Q4HPRN PRN IV 01/08/25 08:30 objective General Appearance: alert, no distress HEENT: EOMI, PERRLA, normal external inspect of ears, no icterus, no nasal drainage Neck: no carotid bruit, no jugular venous distention (JVD), no lymphadenopathy Chest: normal thorax Respiratory: clear to auscultation, normal air movement Cardiovascular: regular rate and rhythm, no diastolic murmur, no jugular venous distention (JVD), no rub, no systolic murmur Abdominal: soft, no hepatomegaly, no mass, no splenomegaly, no tenderness Genitourinary: grossly normal external Musculoskeletal: no joint tenderness, no swelling Extremities: normal pulses, no calf tenderness, no clubbing, no cyanosis, no edema Skin: no bruising, no jaundice, no rash Neurological: alert, No focal deficit laboratory and microbiology Laboratory Tests 01/07/25 05:55 Test 01/07/25 05:55 Range/Units Serum Glucose 111 H 74-106 mg/dL Problem List 1. Incarcerated umbilical hernia Monitor, IV fluids, surgical consult, prn pain meds 2. Benign essential HTN Monitor, DVT prophylaxis 3. Morbid obesity Monitor, PPI, lipid panel, obtain Hgb A1c Assessment/Plan Subjective: Patient is awake and alert. Objective: Patient is [place]-speaking. She reports ambulating but has not had a bowel movement, though she is passing flatus. She is status post repair of incarcerated umbilical hernia. Hemoglobin A1c is 5.9. Patient's family member was updated at bedside Plan: Continue clear liquid diet and advance as tolerated. Encourage ambulation. Plan discussed with: Patient, Other JORDYN MACIAS NP Jan 09, 2025 13:54
[2025-01-10] VITALS (7 sets, daily range): BP systolic 121–160; BP diastolic 68–86; PULSE 88–130; RESP 17–20; TEMP 36.6; O2SAT 93–96
--- NOTE | 2025-01-10 06:24 | DVHHP2 ---
History of Present Illness 64 yo female patient with hx of hernia c/o suprapubic abdominal pain with asso ciated nausea x 3 days. While in the emergency department the patient was evaluated by the provider, As per provider: Labs, vital signs, and imagining monitored. Patient will be admitted for further evaluation and treatment. I discussed admission with the patient/family and is in agreement to treatment plan. Allergies: Coded Allergies: NO KNOWN ALLERGIES (Unverified , 01/06/25) Home Meds Active Scripts Hydrocodone-Acetaminophen (Hydrocodone Bitartrate/AC 5-325 mg) 1 Tab Tab, 1 TAB PO Q8HP PRN for 5 Days, #15 TAB Prov:JORDYN MACIAS HEAD GOLF COACH 01/10/25 Amlodipine Besylate (NORVASC TABLET) 5 Mg Tb, 1 TAB PO DAILY, #90 TAB 3 Refills Prov:JORDYN MACIAS HEAD GOLF COACH 01/10/25 Enalapril Maleate (Enalapril Maleate) 20 Mg Tab, 1 TAB PO BID, #180 TAB 1 Refill Prov:JORDYN MACIAS HEAD GOLF COACH 01/10/25 Review of Systems Constitutional: denies chills, denies fever, denies malaise Eyes: denies eye pain, denies vision change ENT: denies ear pain, denies headache, denies nasal congestion, denies painful swallowing, denies voice change Cardiovascular: denies chest pain, denies edema, denies orthopnea, denies palpitations, denies paroxysmal nocturnal dyspnea Respiratory: denies cough, denies shortness of breath Gastrointestinal: denies constipation, denies diarrhea, denies nausea, denies vomiting Genitourinary: denies dysuria, denies frequent urination, denies urethral discharge Musculoskeletal: denies back pain, denies joint pain, denies muscle pain Skin: denies bruising, denies itching, denies rash Neurological: denies focal weakness, denies headache, denies sensory changes Psychiatric: denies anxiety, denies depression Endocrine: denies polydipsia, denies polyuria Hematologic/Lymphatic: denies easy bleeding, denies easy bruising, denies enlarged lymph nodes Allergic/Immunologic: denies allergy, denies hives Vital Signs Vital Signs Date Time Temp Pulse Resp B/P (MAP) Pulse Ox O2 Delivery O2 Flow Rate FiO2 01/10/25 12:50 98.7 114 17 121/74 (90) 93 98.7 01/10/25 08:00 Room Air* 0 21 SEPSIS Sepsis Screen Date sepsis recognized/suspect: Jan 06, 2025 Time Sepsis recognized/suspect: 739 Recent Procedure: No On Antibiotic Therapy: No Respiratory Rate >20: No Heart Rate >90: Yes Temp<36 C (96.8 F) or >38.3 C: No SBP <90 or MAP <65 mmHG: No New Acute Mental Status Change: No Is the patient on CPAP, BIPAP,: No Physician Orders Ct Ab Pel Wo Con-No Oral Or Iv (01/06/25 08:03) Heplock Iv (01/06/25 08:03) Ngt/Ogt (01/06/25 ) * Surgical Consult (01/06/25 09:09) Admit (01/06/25 15:31) Code Status (01/06/25 15:31) Hydrocodone-Acet 5/325mg Tab ([place] 5/32 (01/06/25 15:45) Enoxaparin Sodium (Lovenox) (01/07/25 10:00) Condition: Fair (01/06/25 15:31) Acetaminophen Tablet (Tylenol Tablet) (01/06/25 15:45) Morphine Sulfate Injection (01/06/25 15:45) Sequential Compression Device (01/06/25 ) Nitroglycerin Sublingual (Ntrostat Subli (01/06/25 15:45) Stat Ekg For Chest Pain (01/06/25 15:31) Notify Md Of Changes From Base (01/06/25 15:31) Axle Inspector For 24 Hours (01/06/25 15:31) Emergency Dysrhythmia Protocol (01/06/25 15:31) Rhythm Strips Once Every Shift (01/06/25 15:31) Oxygen By Nasal Cannula (01/06/25 15:31) Pantoprazole (Protonix) (01/07/25 10:00) Morphine Sulfate Injection (01/06/25 15:45) Npo Except Ice Chips (01/07/25 11:53) Hydralazine Injection (Apresoline Inject (01/07/25 12:00) Obtain Consent For: (01/07/25 12:22) Electrocardigram (01/07/25 12:44) Chest Portable (01/07/25 12:44) Oxygen By Face Mask (01/08/25 06:53) Adjunct Professor Of [employer] (01/08/25 06:53) Notify Anesth. For Changes: (01/08/25 06:53) Pulse Ox Assessment (01/08/25 06:53) Bear Hugger For Temp <94.5f (01/08/25 06:53) May Have Head Of Bed Up (01/08/25 06:53) Follow Iv With Surgeon Orders (01/08/25 06:53) Discharge To Room Per Criteria (01/08/25 06:53) To Pacu For Recovery (01/08/25 08:19) Oxygen Via Cool Mist Mask (01/08/25 08:19) Incentive Spirometry Q 1hr (01/08/25 08:19) Abdominal Binder (01/08/25 08:19) Sequential Compression Device (01/08/25 08:19) D5w/Sod Chl 0.45%/Kcl 20meq (01/08/25 08:30) Cefazolin 2 Gm/[id number] (Ancef) (01/08/25 14:00) Hydromorphone Injection (Dilaudid Inject (01/08/25 08:30) Ondansetron Hcl (Zofran) (01/08/25 08:30) Call/Page Hospitalist/Atten Fo (01/08/25 08:19) Ambulate Every 4hours Q4H (01/08/25 08:19) Advance Diet As Tolerated (01/09/25 13:54) Communication Order (01/09/25 13:54) Regular Diet (01/10/25 Lunch) Patient Is Cleared For D/C (01/10/25 10:38) Vital Signs Date Time Temp Pulse Resp B/P (MAP) Pulse Ox O2 Delivery O2 Flow Rate FiO2 01/10/25 12:50 98.7 114 17 121/74 (90) 93 98.7 01/10/25 09:04 98.0 119 17 129/68 (88) 94 98.0 01/10/25 08:00 Room Air* 0 21 01/10/25 06:48 160/85 01/10/25 05:00 98.5 95 20 160/85 (110) 95 98.5 01/10/25 01:00 97.3 88 20 121/69 (86) 96 97.3 01/09/25 21:00 98.2 100 20 140/79 (99) 96 98.2 01/09/25 20:00 100 20 96 Room Air* 0 21 01/09/25 20:00 111 01/09/25 17:00 99.1 112 20 159/71 (100) 95 99.1 01/09/25 16:59 170/71 01/09/25 13:00 97.8 123 22 161/79 (106) 96 97.8 01/09/25 09:12 194/66 01/09/25 08:48 98.8 105 18 174/84 (114) 96 98.8 01/09/25 08:00 Room Air* 0 21 01/09/25 08:00 100 01/09/25 05:00 98.5 90 18 148/76 (100) 92 98.5 01/09/25 01:00 99.8 95 17 145/79 (101) 94 99.8 01/08/25 21:00 99.8 86 18 135/75 (95) 95 99.8 01/08/25 20:00 65 98 Room Air* 0 21 01/08/25 20:00 88 01/08/25 13:00 97.9 87 20 122/68 (86) 93 97.9 01/08/25 10:10 178/81 01/08/25 09:54 75 20 183/69 (107) 98 01/08/25 09:01 69 20 139/88 (105) 98 01/08/25 08:59 73 15 159/84 (109) 99 01/08/25 08:55 Nasal Cannula 2.0 99 01/08/25 08:55 73 15 99 Nasal Cannula 2.0 01/08/25 08:45 79 14 95 Nasal Cannula 4.0 01/08/25 08:45 Nasal Cannula 4.0 95 01/08/25 08:44 79 14 166/75 (105) 95 01/08/25 08:39 73 20 169/82 (111) 95 01/08/25 08:34 83 16 184/78 (113) 97 01/08/25 08:29 75 14 96 Mask 8.0 01/08/25 08:29 97.2 75 14 159/70 (99) 96 97.2 01/08/25 08:29 Mask 8.0 96 01/08/25 08:00 98 01/08/25 08:00 Room Air* 0 21 Laboratory Tests Test 01/06/25 08:28 01/07/25 05:55 01/10/25 10:10 White Blood Count 9.9 10^3/uL (4.4-10.8) 11.0 10^3/uL (4.4-10.8) H 7.8 10^3/uL (4.4-10.8) # Results Labs Test 01/10/25 10:10 01/07/25 12:31 01/07/25 05:55 01/06/25 12:03 Range/Units White Blood Count 7.8 # 4.4-10.8 10^3/uL Red Blood Count 4.68 4.0-5.20 10^6/uL Hemoglobin 13.3 12.2-16.2 g/dL Hematocrit 39.4 36.0-46.0 % Mean Corpuscular Volume 84.1 80.0-100.0 fL Mean Corpuscular Hemoglobin 28.3 28.0-32.0 pg Mean Corpuscular Hemoglobin Concent 33.7 32.0-36.0 g/dL Red Cell Distribution Width 13.8 11.8-14.3 % Platelet Count 284 140-450 10^3/uL Mean Platelet Volume 7.9 6.9-10.8 fL Neutrophils (%) (Auto) 81.8 H 37.0-80.0 % Lymphocytes (%) (Auto) 9.4 L 10.0-50.0 % Monocytes (%) (Auto) 6.5 0.0-12.0 % Eosinophils (%) (Auto) 2.1 0.0-7.0 % Basophils (%) (Auto) 0.2 0.0-2.0 % Neutrophils # (Auto) 6.4 1.6-8.6 10 ^3/uL Lymphocytes # (Auto) 0.7 0.4-5.4 10 ^3/uL Monocytes # (Auto) 0.5 0-1.3 10 ^3/uL Eosinophils # (Auto) 0.2 0-0.8 10 ^3/uL Basophils # (Auto) 0 0-0.2 10 ^3/uL Nucleated Red Blood Cells 0.1 % Sodium Level 142 136-145 mmol/L Potassium Level 3.8 3.5-5.1 mmol/L Chloride Level 107 98-107 mmol/L Carbon Dioxide Level 26 20-31 mmol/L Anion Gap 9 5-15 Blood Urea Nitrogen 5 L 9-23 mg/dL Creatinine 0.62 0.550-1.02 mg/dL Glomerular Filtration Rate Calc 99 >90 mL/min BUN/Creatinine Ratio 8.1 L 10.0-20.0 Serum Glucose 131 H 74-106 mg/dL Calcium Level 8.4 L 8.7-10.4 mg/dL Magnesium Level 1.9 1.6-2.6 mg/dL Prothrombin Time 11.2 9.3-11.8 sec Prothrombin Time INR 1.06 0.9-1.15 Activated Partial Thromboplast Time 28.3 24.5-34.5 SEC Hemoglobin A1c 5.5 <5.7 % A1C Total Bilirubin 1.2 H 0.2-1.0 mg/dL Aspartate Amino Transferase (AST) 24 13-40 U/L Alanine Aminotransferase (ALT) 28 7-40 U/L Alkaline Phosphatase 101 46-116 U/L Total Protein 7.0 5.7-8.2 g/dL Albumin 4.1 3.2-4.8 g/dL Triglycerides Level 104 < 150 mg/dL Cholesterol Level 159 < 200 mg/dL LDL Cholesterol 117 H < 100 mg/dL HDL Cholesterol 38 L 40-59 mg/dL Urine Color Yellow Yellow Urine Clarity Turbid H Clear Urine pH 6.0 5.0-9.0 Urine Specific [place] 1.026 1.001-1.035 Urine Protein Trace H Negative Urine Ketones Negative Negative Urine Blood Negative Negative /uL Urine Nitrite Negative Negative Urine Bilirubin Negative Negative Urine Urobilinogen Normal Negative mg/dL Urine Leukocyte Esterase 3+ Negative /uL Urine RBC 7 0 - 4 /hpf Urine Microscopic WBC 138 H 0-5 /HPF Urine Squamous Epithelial Cells Many <5 /hpf Urine Bacteria Few H None Seen /hpf Urine Hyaline Casts Few 0 - 2 /lpf Urine Mucus Few None Seen Urine Glucose Normal Normal mg/dL JORDYN MACIAS NP Jan 10, 2025 06:24
[2025-01-10 10:38] LABS: Hematocrit 39.4 % (36.0-46.0); Hemoglobin 13.3 g/dL (12.2-16.2); Mean Corpuscular Hemoglobin 28.3 pg (28.0-32.0); Mean Corpuscular Volume 84.1 fL (80.0-100.0); Nucleated Red Blood Cells % 0.1 %
--- NOTE | 2025-01-10 10:41 | DVHPN2 ---
Subjective Date Seen: Jan 10, 2025 Post op day Post op day: 2 Patient reports: No new complaints Nursing reports: No new complaints General: Normal HNT: Normal Cardiovascular: Normal Respiratory: Normal Gastrointestinal: Normal Genitourinary: Normal Musculoskeletal: Normal Neurological: Normal Objective Vitals Vital Sign Date Time Temp Pulse Resp B/P (MAP) Pulse Ox O2 Delivery O2 Flow Rate FiO2 01/10/25 09:04 98.0 119 17 129/68 (88) 94 98.0 01/09/25 20:00 Room Air* 0 21 Total Intake and Output 01/09/25 01/09/25 01/10/25 15:00 23:00 07:00 Intake Total 1048 ml 350 ml 350 ml Balance 1048 ml 350 ml 350 ml Medications Current Medications Medications Dose Ordered Sig/Maria G Route Start Time Stop Time Status Last Admin Dose Admin Acetaminophen/ Hydrocodone Bitart 1 tab Q4HP PRN PO 01/06/25 15:45 01/09/25 22:05 1 TAB Enoxaparin Sodium 40 mg DAILY SC 01/07/25 10:00 01/10/25 10:08 40 MG Acetaminophen 650 mg Q6HP PRN PO 01/06/25 15:45 01/09/25 16:14 650 MG Morphine Sulfate 2 mg Q4HPRN PRN IV 01/06/25 15:45 Hold 01/07/25 08:29 2 MG Nitroglycerin 0.4 mg Q5MINP PRN SL 01/06/25 15:45 Morphine Sulfate 2 mg Q30M PRN IV 01/06/25 15:45 Pantoprazole Sodium 40 mg DAILY IV 01/07/25 10:00 01/10/25 10:08 40 MG Hydralazine HCl 10 mg Q6HP PRN IV 01/07/25 12:00 01/10/25 06:48 10 MG Potassium Chloride/Dextrose/ Sod Cl 1,000 ml @ 120 mls/hr Q8H20M IV 01/08/25 08:30 01/09/25 17:44 120 MLS/HR Cefazolin Sodium/ Dextrose 50 ml @ 50 mls/hr Q8HR IV 01/08/25 14:00 01/10/25 06:23 50 MLS/HR Hydromorphone HCl 1 mg Q4HPRN PRN IV 01/08/25 08:30 Ondansetron HCl 4 mg Q4HPRN PRN IV 01/08/25 08:30 General: Normal Head/Eyes: Normal ENT: Normal Neck: Normal Lungs: Normal, Normal inspection Cardiovascular: Normal, Regular rate and rhythm Abdominal: Normal, Soft Musculoskeletal: Normal Labs and Microbiology Test 01/10/25 10:10 Range/Units Serum Glucose Pending Ass/Plan Problem List 1. Incarcerated umbilical hernia Monitor, IV fluids, surgical consult, prn pain meds 2. Benign essential HTN Monitor, DVT prophylaxis 3. Morbid obesity Monitor, PPI, lipid panel, obtain Hgb A1c Assessment/Plan no new complaints abdomen soft , non distended, appropriately tender tolerating diet patients states passed a little gas wounds clean dry and intact Plan: patient to ambulate if continues to pass gas ok to advance diet as tolerated continue IV antibiotics and hydration 01/10/25 no new complaints abdomen soft , non distended, appropriately tender tolerating diet passing gas wounds clean dry and intact Plan: patient to ambulate regular diet ok to discharge per surgery point of view patient to follow up in surgery clinic in 2 weeks Prognosis: Good Plan discussed with Dr. Salmon , patient Visit Coding Surgery Date of Service if different f: Jan 10, 2025 Billing Provider: BENITO SALMON MD Surgery Visit Codes: [id number] INP/OBS CARE(HIGH) MARY CHENG LABORATORY TECHNOLOGIST Jan 10, 2025 10:41
[2025-01-10 10:48] LABS: Potassium 3.8 mmol/L (3.5-5.1); Sodium 142 mmol/L (136-145)
[2025-01-10 10:49] LABS: Anion Gap 9 (5-15); Carbon Dioxide 26 mmol/L (20-31)
[2025-01-10 10:50] LABS: Calcium 8.4 mg/dL (8.7-10.4); Chloride 107 mmol/L (98-107)
[2025-01-10 10:55] LABS: BUN/Creatinine Ratio 8.1 (10.0-20.0); Magnesium 1.9 mg/dL (1.6-2.6)
[2025-01-10 10:56] LABS: Blood Urea Nitrogen 5 mg/dL (9-23); Glucose 131 mg/dL (74-106)
[2025-01-10] MEDS ORDERED: HYDR-4902 PO (16:28)
[2025-01-10] MEDS ORDERED: ENAL1TAB48 PO (16:28)
[2025-01-10] MEDS ORDERED: AML5T PO (16:28)
--- NOTE | 2025-01-10 16:33 | DVHDS2 ---
Discharge Summary Date of Admission Jan 06, 2025 at 15:31 Date of Discharge: Jan 10, 2025 Labs/Diagnostic Data: Laboratory Results Test 01/10/25 10:10 01/07/25 12:31 01/07/25 05:55 01/06/25 12:03 White Blood Count 7.8 10^3/uL (4.4-10.8) Red Blood Count 4.68 10^6/uL (4.0-5.20) Hemoglobin 13.3 g/dL (12.2-16.2) Hematocrit 39.4 % (36.0-46.0) Mean Corpuscular Volume 84.1 fL (80.0-100.0) Mean Corpuscular Hemoglobin 28.3 pg (28.0-32.0) Mean Corpuscular Hemoglobin Concent 33.7 g/dL (32.0-36.0) Red Cell Distribution Width 13.8 % (11.8-14.3) Platelet Count 284 10^3/uL (140-450) Mean Platelet Volume 7.9 fL (6.9-10.8) Neutrophils (%) (Auto) 81.8 % (37.0-80.0) Lymphocytes (%) (Auto) 9.4 % (10.0-50.0) Monocytes (%) (Auto) 6.5 % (0.0-12.0) Eosinophils (%) (Auto) 2.1 % (0.0-7.0) Basophils (%) (Auto) 0.2 % (0.0-2.0) Neutrophils # (Auto) 6.4 10 ^3/uL (1.6-8.6) Lymphocytes # (Auto) 0.7 10 ^3/uL (0.4-5.4) Monocytes # (Auto) 0.5 10 ^3/uL (0-1.3) Eosinophils # (Auto) 0.2 10 ^3/uL (0-0.8) Basophils # (Auto) 0 10 ^3/uL (0-0.2) Nucleated Red Blood Cells 0.1 % Sodium Level 142 mmol/L (136-145) Potassium Level 3.8 mmol/L (3.5-5.1) Chloride Level 107 mmol/L (98-107) Carbon Dioxide Level 26 mmol/L (20-31) Anion Gap 9 (5-15) Blood Urea Nitrogen 5 mg/dL (9-23) Creatinine 0.62 mg/dL (0.550-1.02) Glomerular Filtration Rate Calc 99 mL/min (>90) BUN/Creatinine Ratio 8.1 (10.0-20.0) Serum Glucose 131 mg/dL (74-106) Calcium Level 8.4 mg/dL (8.7-10.4) Magnesium Level 1.9 mg/dL (1.6-2.6) Prothrombin Time 11.2 sec (9.3-11.8) Prothrombin Time INR 1.06 (0.9-1.15) Activated Partial Thromboplast Time 28.3 SEC (24.5-34.5) Hemoglobin A1c 5.5 % A1C (<5.7) Total Bilirubin 1.2 mg/dL (0.2-1.0) Aspartate Amino Transferase (AST) 24 U/L (13-40) Alanine Aminotransferase (ALT) 28 U/L (7-40) Alkaline Phosphatase 101 U/L (46-116) Total Protein 7.0 g/dL (5.7-8.2) Albumin 4.1 g/dL (3.2-4.8) Triglycerides Level 104 mg/dL (< 150) Cholesterol Level 159 mg/dL (< 200) LDL Cholesterol 117 mg/dL (< 100) HDL Cholesterol 38 mg/dL (40-59) Urine Color Yellow (Yellow) Urine Clarity Turbid (Clear) Urine pH 6.0 (5.0-9.0) Urine Specific [place] 1.026 (1.001-1.035) Urine Protein Trace (Negative) Urine Ketones Negative (Negative) Urine Blood Negative /uL (Negative) Urine Nitrite Negative (Negative) Urine Bilirubin Negative (Negative) Urine Urobilinogen Normal mg/dL (Negative) Urine Leukocyte Esterase 3+ /uL (Negative) Urine RBC 7 /hpf (0 - 4) Urine Microscopic WBC 138 /HPF (0-5) Urine Squamous Epithelial Cells Many /hpf (<5) Urine Bacteria Few /hpf (None Seen) Urine Hyaline Casts Few /lpf (0 - 2) Urine Mucus Few (None Seen) Urine Glucose Normal mg/dL (Normal) Other Laboratory Tests 01/10/25 10:10 Brief Hx & Hospital Course: 64 yo female patient with hx of hernia c/o suprapubic abdominal pain with associated nausea x 3 days. Patient was manage January 06, 2025 for abdominal pain related to incarcerated umbilical hernia. Patient is status post repair by Dr. Cheek. Patient had a return of bowel function with positive flatus and positive bowel movement. Patient's diet was slowly advanced and she tolerated it well with no nausea and vomiting. Patient was sent home on pain medication. Patient also had a high blood pressure during hospital stay. According to family she is on blood pressure medication before however she has stopped taking them. Refills for Norvasc and lisinopril were sent to her pharmacy. Patient's daughter patient is aware and able to follow-up with her PCP in 1 week and they will follow-up with general surgery for her postop appointment. There were no complaints or new complaints upon discharge, all questions and concerns were answered. Patient was advised to return to the ER or call 911 if any headaches, dizziness, shortness of breath, chest pain, bleeding, fevers, or worsening of medical condition. Patient/Family was counseled about treatment plan, medications, possible side effects, patient verbalized understanding. All questions were answered to the best of my ability. The patient symptoms improved and they are okay to be DC. Condition at Discharge: Stable Final Diagnosis/Problems List incarcerated umbilical hernia, s/p repair Discharge Disposition: Home Discharge Instruct/Medications Diet: Cardiac 2g Na,low cholest Activity: No Restrictions, As Tolerated Medications: sent lisinopril and norvasc Scheduled Amlodipine Besylate (Norvasc Tablet), 1 TAB PO DAILY Enalapril Maleate (Enalapril Maleate), 1 TAB PO BID Scheduled PRN Hydrocodone-Acetaminophen (Hydrocodone Bitartrate/AC 5-325 mg), 1 TAB PO Q8HP PRN Discharge Statement: "Patient was advised to return to the ER or call 911 if any headaches, dizziness, shortness of breath, chest pain, abdominal pain, bleeding, fevers, or worsening of medical condition. Patient was counseled about treatment plan, medications, possible side effects, patientverbalized understanding. All questions were answered to the best of my ability. This discharge took greater then 30 minutes in planning, reviewing documentation, counseling the patient, and discussing with other team members." ASSESSMENT ASSESSMENT Assessment incarcerated umbilical hernia, s/p repair JORDYN MACIAS NP Jan 10, 2025 16:33
== END 2025-01-10 18:10 | disposition home or self-care (01) | DRG 227 ==
LOC: ER 07:38 → OVERFLOW 15:31 → TELE-CENTR 01-07 17:36
PROVIDERS: ADMIT Nurse Practitioner; ATTEND Nurse Practitioner
PROC: 0WQF0ZZ Repair Abdominal Wall, Open Approach (ICD-10-PCS; principal; 2025-01-08 07:29)
DX: K43.0 Incisional hernia with obstruction, without gangrene (principal); E66.01 Morbid (severe) obesity due to excess calories; K42.0 Umbilical hernia with obstruction, without gangrene; I10 Essential (primary) hypertension; Z90.49 Acquired absence of other specified parts of digestive tract; Z68.41 Body mass index [BMI] 40.0-44.9, adult; Z79.899 Other long term (current) drug therapy
CPT/HCPCS: 36415; 71045; 74176; 80048; 80053; 80061; 81001; 83036; 83735; 85025; 85610; 85730; 86850; 86900; 86901; 96374; 96375; G0378; J0330; J2250; J2405; J2470; J2704; J3490